=== PATIENT | female | born 1990 | race American Indian/Alaskan Native ===

== ENCOUNTER 2020-08-03 16:22 | Emergency (ER) | payer OTHER ==
[2020-08-03 16:29] VITALS: BP 116/82
--- NOTE | 2020-08-03 17:42 | XRay Report ---
RIGHT KNEE 3 VIEWS INDICATION / CLINICAL INFORMATION: right knee pain/edema. COMPARISON: None available. FINDINGS: No significant skeletal abnormality Signer Name: Jeremy Alcaraz MD FACR Signed: 08/03/2020 5:37 PM Workstation Name: [id number]
--- NOTE | 2020-08-03 17:59 | Emergency Department Report ---
ED Extremity Problem HPI - General Chief complaint: Extremity Injury, Lower Stated complaint: RIGHT KNEE PAIN Time Seen by Provider: 08/03/20 17:12 Source: patient Mode of arrival: Ambulatory Limitations: No Limitations - History of Present Illness Initial comments: Patient is a 29-year-old female who presents emergency room with complaints of right knee pain and swelling that began yesterday. She denies any fall or injury. She states that she did have a arthroscopy approximately 12 years ago but states that she does not remember what they did. She denies any fever, leg swelling down the leg, calf tenderness, numbness, weakness. Patient is ambulatory with mild discomfort upon ambulation. No other past medical history. No allergies to medications. Last menstrual cycle 07/24/2020. - Related Data Previous Rx's Medication Instructions Recorded Last Taken Type Naproxen [EC-Naprosyn] 500 mg PO BID PRN #14 tablet. 08/03/20 Unknown Rx Allergies Allergy/AdvReac Type Severity Reaction Status Date / Time No Known Allergies Allergy Unverified 08/03/20 16:23 ED Review of Systems ROS: Stated complaint: RIGHT KNEE PAIN Other details as noted in HPI Comment: All other systems reviewed and negative ED Past Medical Hx - Past Medical History Previous Medical History?: No - Surgical History Additional Surgical History: KNEE SURGERY-RIGHT - Social History Smoking Status: Never Smoker Substance Use Type: None - Medications Home Medications: Home Medications Medication Instructions Recorded Confirmed Last Taken Type Naproxen [EC-Naprosyn] 500 mg PO BID PRN #14 tablet. 08/03/20 Unknown Rx ED Physical Exam - General Limitations: No Limitations General appearance: alert, in no apparent distress - Head Head exam: Present: atraumatic, normocephalic - Eye Eye exam: Present: normal appearance - ENT ENT exam: Present: mucous membranes moist - Respiratory Respiratory exam: Absent: respiratory distress, accessory muscle use - Extremities Exam Extremities exam: Present: other (right anterior knee ttp with mild edema present, FROM of the RLE, discomfort with full flexion of the knee, no erythema, no increased warmth, no skin changes, no calf ttp, no deformity, no edema down the leg, neurovascularly intact) - Neurological Exam Neurological exam: Present: alert, oriented X3 - Psychiatric Psychiatric exam: Present: normal affect, normal mood - Skin Skin exam: Present: warm, dry, intact ED Course Vital Signs 08/03/20 16:28 Temperature 97.8 F Pulse Rate 83 Respiratory 20 Rate Blood Pressure 116/82 O2 Sat by Pulse 100 Oximetry ED Medical Decision Making - Radiology Data Radiology results: report reviewed Ordering Physician: TANYA PASCUAL Date of Service: 08/03/20 Procedure(s): XR knee 3V RT Accession Number(s): [id number] cc: TANYA PASCUAL Fluoro Time In Minutes: RIGHT KNEE 3 VIEWS INDICATION / CLINICAL INFORMATION: right knee pain/edema. COMPARISON: None available. FINDINGS: No significant skeletal abnormality Signer Name: Jeremy Alcaraz MD FACR Signed: 08/03/2020 5:37 PM Workstation Name: [id number] Transcribed By: MS Dictated By: Jeremy Alcaraz MD Electronically Authenticated By: Jeremy Alcaraz MD Signed Date/Time: 08/03/201736 DD/ 36 TD/TT: - Medical Decision Making Patient is a 29-year-old female who presents emergency room with complaints of right knee pain and swelling that began yesterday. She denies any fall or injury. She states that she did have a arthroscopy approximately 12 years ago but states that she does not remember what they did. She denies any fever, leg swelling down the leg, calf tenderness, numbness, weakness. Patient is ambulatory with mild discomfort upon ambulation. No other past medical history. No allergies to medications. Last menstrual cycle 07/24/2020. VSS. on exam: right anterior knee ttp with mild edema present, FROM of the RLE, discomfort with full flexion of the knee, no erythema, no increased warmth, no skin changes, no calf ttp, no deformity, no edema down the leg, neurovascularly intact. XR right knee: No significant skeletal abnormality. Discussed all results with patient and answered questions. Symptoms appear most consistent with bursitis. no signs of gout or septic joint. Patient placed in Sammy wrap by nurse and remained neurovascularly intact. Patient given prescription for naproxen. Advised patient to please take medication as prescribed as needed. Do not wear Sammy bandage too tightly and do not wear at night while sleeping. May use ice 20 minutes at a time, rest, elevation of the leg. Follow-up with orthopedic doctor. Return to emergency room for new or worsening symptoms. - Differential Diagnosis strain, sprain, fx, dislocation, effusion, gout, bursitis, tendinitis Critical care attestation.: If time is entered above; I have spent that time in minutes in the direct care of this critically ill patient, excluding procedure time. ED Disposition Clinical Impression: Right knee pain Qualifiers: Chronicity: acute Qualified Code(s): M25.561 - Pain in right knee Disposition: TO HOME OR SELFCARE Is pt being admited?: No Does the pt Need Aspirin: No Condition: Stable Instructions: Acute Knee Pain, Adult Additional Instructions: please take medication as prescribed as needed. Do not wear Sammy bandage too tightly and do not wear at night while sleeping. May use ice 20 minutes at a time, rest, elevation of the leg. Follow-up with orthopedic doctor. Return to emergency room for new or worsening symptoms. Your knee x-ray today is normal Prescriptions: Naproxen [EC-Naprosyn] 500 mg PO BID PRN #14 tablet.dr PRHerman Reason: pain Referrals: TAMIR SPRINGER MD [Staff Physician] - 2-3 Days [facility] [Provider Group] - 2-3 Days Time of Disposition: 17:59 Print Language: DIVEHI
== END 2020-08-03 18:35 | disposition home or self-care (01) ==
LOC: ED 16:22
DX: M25.561 Pain in right knee (principal); Z79.899 Other long term (current) drug therapy
CPT/HCPCS: 99283